=== PATIENT | female | born 1975 | race Caucasian/White ===

== ENCOUNTER 2023-09-30 21:07 | Emergency (ER) | payer OTHER ==
[~2023-09-30] VITALS: Ht 154.9 cm; Wt 85.7 kg
[2023-09-30 21:17] VITALS: BP 149/94; PULSE 99; RESP 16; TEMP 97.8; O2SAT 100
[2023-10-01] MEDS: KETOROLAC 30 MG/ML VIAL IM ONE (03:07)
[2023-10-01] MEDS ORDERED: NAPR-337 PO (03:07)
== END 2023-10-01 03:38 | disposition home or self-care (01) ==
LOC: MED 21:07
DX: S93.402A Sprain of unspecified ligament of left ankle, initial encounter (principal); S93.401A Sprain of unspecified ligament of right ankle, initial encounter; Z79.1 Long term (current) use of non-steroidal anti-inflammatories (NSAID); W19.XXXA Unspecified fall, initial encounter; Y93.89 Activity, other specified; Y92.89 Other specified places as the place of occurrence of the external cause; Y99.8 Other external cause status
CPT/HCPCS: 73610; 73630; 96372; 99284; J1885

== ENCOUNTER 2023-10-17 19:30 | Emergency (ER) | payer OTHER ==
[~2023-10-17] VITALS: Ht 154.9 cm; Wt 85.7 kg
[~2023-10-17 19:30] MED LIST: NAPR-337 PO
[2023-10-17 19:37] VITALS: BP 118/74; PULSE 98; RESP 18; TEMP 97.7; O2SAT 99
[2023-10-17] MEDS: CIPROFLOXACIN 250 MG TAB PO ONE (20:27)
[2023-10-17] MEDS ORDERED: CIPR500T4 PO (21:11)
[2023-10-17 21:16] VITALS: BP 136/70; PULSE 88; RESP 18; TEMP 98.3; O2SAT 99
== END 2023-10-17 21:16 | disposition home or self-care (01) ==
LOC: MED 19:30
DX: S91.331A Puncture wound without foreign body, right foot, initial encounter (principal); Z79.899 Other long term (current) drug therapy; X58.XXXA Exposure to other specified factors, initial encounter; Y93.89 Activity, other specified; Y92.89 Other specified places as the place of occurrence of the external cause; Y99.8 Other external cause status
CPT/HCPCS: 73630; 90471; 90715; 99283